=== PATIENT | female | born 1960 | race Caucasian/White ===

== ENCOUNTER 2024-10-06 17:13 | Emergency (ER) | payer BC ==
[~2024-10-06] VITALS: Ht 172.7 cm; Wt 70.0 kg
[2024-10-06 18:12] LABS: BASOPHILS % (AUTO) 0.4 % (0-1); EOSINOPHILS # (AUTO) 0.1 X10'3 (0-0.9); EOSINOPHILS % (AUTO) 0.8 % (0-6); LYMPHOCYTES # (AUTO) 3.6 X10'3 (1.1-4.8); LYMPHOCYTES % (AUTO) 49.8 % (21-51); MEAN CORPUSCULAR HEMOGLOBIN 33.3 PG (27.0-31.0); MEAN CORPUSCULAR HGB CONC 34.1 g/dL (33.0-36.5); MEAN CORPUSCULAR VOLUME 97.7 FL (78-98); MEAN PLATELET VOLUME 6.8 FL (7.4-10.4); MONOCYTES # (AUTO) 0.4 X10'3 (0-0.9); MONOCYTES % (AUTO) 5.1 % (2-12); NEUTROPHILS # (AUTO) 3.2 X10'3 (1.8-7.7); NEUTROPHILS % (AUTO) 43.9 % (42-75); PLATELET COUNT 250 X10'3 (140-440); RED BLOOD COUNT 3.89 X10'6 (4.20-5.60); WHITE BLOOD COUNT 7.3 X10'3 (4.5-11.0)
--- NOTE | 2024-10-06 18:13 | RADIOLOGY REPORT ---
COMPUTERIZED TOMOGRAPHY OF THE HEAD WITHOUT CONTRAST COMPUTERIZED TOMOGRAPHY OF THE CERVICAL SPINE, NONCONTRAST REASON FOR STUDY: MULTIPLE FALLS WITH HEADSTRIKE COMPARISON: None TECHNIQUE: Helical tomographic scans were obtained through the brain. 2-D coronal and sagittal reform atted images are provided. Automated exposure control was used. CT of the entire cervical spine was performed in routine fashion with sagittal and coronal reconstruc tions. Soft tissues and bone windows were filmed. Automated exposure control was used. RADIATION DOSE: Head: CTDI: 52 mGy DLP: 954 mGy-cm C-Spine: CTDI: 16 mGy DLP: 276 mGy-cm FINDINGS: There is prior right frontoparietal craniectomy with a prosthetic bone replacement. There i s some ossification of the dura in the area of prior surgery. There is a right posterior approach mary triculoperitoneal shunt catheter with the tip terminating in the anterior right lateral ventricle cyndi r the septum pellucidum. No suspicious intracranial hyperdensity to suggest acute blood. There is no mass effect nor midline shift. There is mild the mastoid air cells are clear. There is a small reten tion cyst versus polyp in the right maxillary sinus. generalized volume loss with compensatory enlarg ement of the CSF spaces. There is minimal asymmetric enlargement of the right lateral ventricle praveen red with the left, possibly chronic. The suprasellar cistern is intact. There are scattered periventr icular and deep white matter hypodensities that are most consistent with chronic microangiopathic makenna nges. The calvarium is intact. The visualized mastoid air cells and paranasal sinuses are clear. The visualized vertebral bodies are normal in height with no evidence of fracture. Note that the ante rior inferior endplate of C7 is excluded from view. There is anterior plate and screw fixation of C6- C7. There is maintenance of the normal cervical lordosis. No focal bony lesion is seen. There is mode rate disc height loss with endplate hypertrophy at C4-C5 which causes moderate right and severe left neural foraminal narrowing. No abnormal fluid is identified in the neck. No definite disruption of th e visualized ventriculoperitoneal catheter is identified. IMPRESSION: No acute intracranial abnormality. Mild generalized volume loss with chronic small vessel ischemic ch michi. Ventriculoperitoneal shunt. Minimal asymmetric enlargement of the right lateral ventricle compared w ith the left, possibly chronic. Correlation with prior studies is recommended. No evidence of acute fracture of the cervical spine. Moderate degenerative disc disease at C4-C5 causing moderate right and severe left neural foraminal n arrowing.
[2024-10-06 18:37] LABS: ALANINE AMINOTRANSFERASE 7 U/L (12-78); ALBUMIN/GLOBULIN RATIO 1.1 (1.1-1.5); ALKALINE PHOSPHATASE 83 IU/L (46-116); ANION GAP 10 (8-16); ASPARTATE AMINO TRANSFERASE 12 U/L (10-37); BILIRUBIN,TOTAL 0.2 MG/DL (0.1-1.0); BLOOD UREA NITROGEN 14 MG/DL (7-18); BUN/CREATININE RATIO 15.6 (10.0-20.0); CALCIUM 7.9 MG/DL (8.5-10.1); CHLORIDE 109 MMOL/L (99-107); GLUCOSE 90 MG/DL (70-104); LIPASE 29 U/L (16-77); POTASSIUM 3.7 MMOL/L (3.5-5.1); SODIUM 144 MMOL/L (135-145); TOTAL CARBON DIOXIDE 25.3 MMOL/L (24-32); TOTAL PROTEIN 5.8 G/DL (6.4-8.2); eCRCL 64 ML/MIN; eGFR 63 ML/MIN
[2024-10-06 18:49] LABS: ETHANOL 164 MG/DL (<10)
--- NOTE | 2024-10-06 20:00 | Physician Documentation ---
History of Present Illness ~ Chief Complaint: Mechanical Fall Stated Complaint: FALL Time Seen by MD: 18:13 Primary Medical Doctor: [facility] Mode of Arrival: EMS HPI This is a 64-year-old female who comes in for evaluation of multiple falls while intoxicated. She states that she fell 3 times today. The patient states that she drank a lot of vodka earlier today. This frustrated her who dumped all of the vodka. This is frustrated the patient in turn and she started yelling at the . As a result of the available altercation the has been decided to call the ambulance to have the patient transported to the ER. At the time of my examination patient reports head pain and neck pain. No particular palliating or aggravating factors. She states that she feels confused. She denies any chest pain, difficulty breathing, nausea, vomiting, diarrhea, abdominal pain. She states that she normally does not drink daily. Tetanus within 5 Years?: Yes Medication Reconciliation Allergies: Coded Allergies: No Known Allergies (Unverified , 10/06/24) Review of Systems ROS 10 point review of systems was performed and unless noted above in HPI is negative for acute process/complaint. Physical Exam Vital Signs: Temperature: 98.3, Source: Oral, Heart Rate: 89, Respiratory Rate: 14, BP: 105/73, Pulse Oximetry: 96, Weight: 70.000 Oxygen Flow Rate: 0 Physical Exam GENERAL: Awake, alert, oriented, GCS 15, no apparent distress, non-toxic appearing, answers questions, follows commands appropriately. Examined in bed 4. HEENT: Atraumatic, normocephalic, pupils equal, extraocular muscles intact, sclerae anicteric, mucus membranes moist, oropharynx is clear, no stridor. NECK: supple, full active range of motion, trachea midline, no thyromegaly, no lymphadenopathy, no JVD. CARDIOVASCULAR: regular rate/rhythm, no murmurs/gallops/rubs, Pulses are 2+ in all extremities and symmetric. Capillary refill less than 2 seconds. PULMONARY: Nonlabored, good air movement ,no respiratory distress, speaking in full sentences, clear to auscultation bilaterally, no wheezing, no ronchi, no rales, no accessory muscle use. GASTROINTESTINAL: Soft, non-tender, non-distended, normal active bowel sounds, no organomegaly, no pulsatile masses, no CVA tenderness. NEUROLOGIC: Lucid with normal mental status. Normal facial symmetry. Moves all extremities symmetrically and with purpose. No truncal ataxia. Speech is fluid and slightly slurred consistent with alcohol intoxication, no evidence of aphasia, no focal deficits appreciated. MUSCULOSKELETAL: There is full range of motion of all extremities. There is no joint pain or joint swelling or joint erythema. There is no muscle pain or tenderness or swelling. EXTREMITIES: warm, well-perfused, no cyanosis, no clubbing, no edema, no acute deformities. Skin: warm, dry, no rashes or lesions, no jaundice, no petechiae orpurpura. No ecchymosis. PSYCHIATRIC: Normal affect, normal insight, normal concentration. Focused exam: [No midline tenderness to palpation of thoracic spine] Progress Results/Orders Results/Orders Orders - BRICE BUTLER DO Drug Screen, Urine (10/06/24 18:33) * Miscellaneous Nursing Orders (10/06/24 19:58) Vital Signs 10/06/24 10/06/24 10/06/24 10/06/24 17:18 17:22 18:15 20:00 Temp 98.3 Pulse 103 89 87 Resp 21 24 14 15 B/P (MAP) 105/79 105/73 (84) 110/62 (78) Pulse Ox 96 96 100 O2 Flow Rate 0 Laboratory Tests Test 10/06/24 17:54 White Blood Count 7.3 Red Blood Count 3.89 L Hemoglobin 13.0 Hematocrit 38.0 Mean Corpuscular Volume 97.7 Mean Corpuscular Hemoglobin 33.3 H Mean Corpuscular Hemoglobin Concent 34.1 Red Cell Distribution Width 18.0 H Platelet Count 250 Mean Platelet Volume 6.8 L Neutrophils (%) (Auto) 43.9 Lymphocytes (%) (Auto) 49.8 Monocytes (%) (Auto) 5.1 Eosinophils (%) (Auto) 0.8 Basophils (%) (Auto) 0.4 Neutrophils # (Auto) 3.2 Lymphocytes # (Auto) 3.6 Monocytes # (Auto) 0.4 Eosinophils # (Auto) 0.1 Basophils # (Auto) 0.0 CBC Comment Sodium Level 144 Potassium Level 3.7 Chloride Level 109 H Carbon Dioxide Level 25.3 Anion Gap 10 Blood Urea Nitrogen 14 Creatinine 0.90 Estimated GFR/1.73 m2 63 BUN/Creatinine Ratio 15.6 Glucose Level 90 Calcium Level 7.9 L Total Bilirubin 0.2 Aspartate Amino Transf (AST/SGOT) 12 Alanine Aminotransferase (ALT/SGPT) 7 L Alkaline Phosphatase 83 Total Protein 5.8 L Albumin 3.0 L Globulin 2.8 Albumin/Globulin Ratio 1.1 Lipase 29 Chemistry Comments Ethyl Alcohol Level 164 H EKG/XRAY/CT/US/VASC/MRI CT : CT: head Impression [facility] [address] , [place], [facility] [id number] CAT SCAN Patient: PADMINI HALL Medical Record: [id number] [facility] : 1960, Age: 64 Sex: Female Location: ER Patient Status: [facility] ER Service Date/Time: 10/06/241728 Ordering Physician: IVAN MIRANDA MD Exam: CT HEAD COMPUTERIZED TOMOGRAPHY OF THE HEAD WITHOUT CONTRAST COMPUTERIZED TOMOGRAPHY OF THE CERVICAL SPINE, NONCONTRAST REASON FOR STUDY: MULTIPLE FALLS WITH HEADSTRIKE COMPARISON: None TECHNIQUE: Helical tomographic scans were obtained through the brain. 2-D coronal and sagittal reformatted images are provided. Automated exposure control was used. CT of the entire cervical spine was performed in routine fashion with sagittal and coronal reconstructions. Soft tissues and bone windows were filmed. Automated exposure control was used. RADIATION DOSE: Head: CTDI: 52 mGy DLP: 954 mGy-cm C-Spine: CTDI: 16 mGy DLP: 276 mGy-cm FINDINGS: There is prior right frontoparietal craniectomy with a prosthetic bone replacement. There is some ossification of the dura in the area of prior surgery. There is a right posterior approach ventriculoperitoneal shunt catheter with the tip terminating in the anterior right lateral ventricle near the septum pellucidum. No suspicious intracranial hyperdensity to suggest acute blood. There is no mass effect nor midline shift. There is mild the mastoid air cells are clear. There is a small retention cyst versus polyp in the right maxillary sinus. generalized volume loss with compensatory enlargement of the CSF spaces. There is minimal asymmetric enlargement of the right lateral ventricle compared with the left, possibly chronic. The suprasellar cistern is intact. There are scattered periventricular and deep white matter hypodensities that are most consistent with chronic microangiopathic changes. The calvarium is intact. The visualized mastoid air cells and paranasal sinuses are clear. The visualized vertebral bodies are normal in height with no evidence of fracture. Note that the anterior inferior endplate of C7 is excluded from view. There is anterior plate and screw fixation of C6-C7. There is maintenance of the normal cervical lordosis. No focal bony lesion is seen. There is moderate disc height loss with endplate hypertrophy at C4-C5 which causes moderate right and severe left neural foraminal narrowing. No abnormal fluid is identified in the neck. No definite disruption of the visualized ventriculoperitoneal catheter is identified. IMPRESSION: No acute intracranial abnormality. Mild generalized volume loss with chronic small vessel ischemic change. Ventriculoperitoneal shunt. Minimal asymmetric enlargement of the right lateral ventricle compared with the left, possibly chronic. Correlation with prior studies is recommended. No evidence of acute fracture of the cervical spine. Moderate degenerative disc disease at C4-C5 causing moderate right and severe left neural foraminal narrowing. Electronically Signed by:RISHI AGUIRRE MD Date & Time: 10/06/241809 Dictated by: RISHI AGUIRRE MD Dictation date and time: 10/06/241809 Primary Care Provider: NO PRIMARY CARE PROVIDER cc: IVAN MIRANDA MD ~ Medical Decision Making Findings Facility Status: ED Holds, [facility] process The plan was discussed with the patient, who demonstrates clear understanding of the plan and is in agreement with the plan unless otherwise noted in the chart. All questions have been answered, all concerns were addressed unless otherwise documented. I was available throughout their ED stay for frequent reassessment and questions. Differential Diagnoses (considered and possible or likely): [Alcohol intoxication, recurrent falls, ground level fall, acute traumatic pain, closed head injury, concussion, subdural, subarachnoid, cervical spine fracture or subluxation, dehydration, electrolyte derangement, hypoglycemia] ??Differential Diagnoses (considered and unlikely, not requiring evaluation currently): [No evidence of lateralizing signs to suspect a stroke] MDM Data Please see HPI for the following: Independent Historians and external Records Review. Historian: [Patient] Independent Historians: ?[EMS] Medication Management: [Reviewed medication list] Social History and determinants: [Reviewed] Please see the body of the note for the following: Any independent interpretations of ECG, imaging studies. All vitals signs/haemodynamics, ordered tests were independently reviewed and interpreted by myself. Nursing triage complaint and vitals reviewed, additional nursing notes were reviewed as available and I agree unless otherwise noted or documented in contradiction in the chart Vital Signs: Independently reviewed Labs: Independently interpreted Imaging: Independently interpreted Old Medical Records: Independently reviewed, see [facility] for relevant summary and information Pulse Oximetry: [96%] interpreted as [normal on room air] by me [User Experience Team Lead: [Regular Rate, Regular rhythm, no ectopy, NSR] reviewed and interpreted by me] Additionally notably showing: [Hemodynamics reviewed. The patient is initially tachycardic, improved with fluids and rest. No evidence of hypotension respiratory distress. CBC normal. No evidence of leukocytosis or thrombocytopenia. Metabolic panel notable for slightly decreased albumin. Lipase is normal. Toxicology shows ethanol of 164, she is drunk. This is expected by her own admission. Imaging is unremarkable for acute disease, no evidence of acute subarachnoid subdural. No evidence of cervical spine fracture.] Tests considered but not ordered include: [Not applicable] Social Determinants of Health Impact: Patient was evaluated in [facility], [facility] [place] to healthcare due to below par ratio of patient to medical providers. [] Comorbid Conditions Impacting Present Evaluation and Care/Treatment: [Alcohol intoxication] Management Discussions with other Healthcare Providers: [None] Treatment and Disposition Medication Management (Given or considered): []. See EMR for details Consideration for Hospitalization/Escalation/Deescalation of Care: Admission for observation has been considered, [however the patient is able to tolerate p.o., their symptoms are controlled, they are able to rely on oral medications, and their chief complaint/diagnosis can be managed on outpatient basis.] ?ED Course:?[Patient metabolize to clinical sobriety.] ?Shared decision making:?[Patient is hemodynamically stable for discharge home with follow with their primary care provider. [ ] Specific and cautious return precautions provided and discussed with full understanding. Any incidental findings were also discussed and follow up recommendations given. [] All questions answered. Patient/family were able to verbalize back return precautions. Patient/family agree to plan. Copies of imaging and laboratory studies were provided.] Code status:?FULL Please see the full Electronic Medical Record for full details of nursing docu mentation, medications list, other records of complete past medical history and conditions, vital signs, laboratory studies, and any radiologic study interpretations by radiologists. Portions of this note were completed using [employer]ue[employer] dictation software and as a result there may exist minor errors in spelling. I have reviewed elements of past family and social history and agree as included in note. Departure Disposition: 01 HOME / SELF CARE / HOMELESS Impression: Primary Impression: Alcoholic intoxication Additional Impressions: Ground-level fall Acute traumatic pain Closed head injury Neck pain Condition: Improved Discharge Instructions: Fall Prevention in the Home, Adult, [id number] Referrals: NO PRIMARY CARE PROVIDER (PCP) Education Educated: Patient Educated regarding: diagnosis, treatment, prognosis, need for follow up Signature Scribe Signature: No scribe Attestation: This note accurately reflects clinical decisions, work performed by myself, DO CARRIE Elizabeth NICHOLAS M DO Oct 06, 2024 20:00
[2024-10-06 20:55] VITALS: BP 99/67; PULSE 100; RESP 12; TEMP 98.3; O2SAT 97
== END 2024-10-06 21:08 | disposition home or self-care (01) ==
LOC: ER 17:16
DX: S09.90XA Unspecified injury of head, initial encounter (principal); F10.129 Alcohol abuse with intoxication, unspecified; M54.2 Cervicalgia; G89.11 Acute pain due to trauma; W19.XXXA Unspecified fall, initial encounter; Y93.89 Activity, other specified; Y92.89 Other specified places as the place of occurrence of the external cause; Y99.8 Other external cause status; Y90.6 Blood alcohol level of 120-199 mg/100 ml
CPT/HCPCS: 36415; 70450; 72125; 80053; 80320; 83690; 85025; 99284